=== PATIENT | female | born 1995 ===

== ENCOUNTER → 2018-07-11 | Outpatient (CLI) | payer OTHER | END | disposition home or self-care (01) | LOC: NST 16:32 | DX: Z34.00 Encounter for supervision of normal first pregnancy, unspecified trimester (principal) ==

== ENCOUNTER 2018-09-01 20:39 | Outpatient (CLI) | payer OTHER ==
[2018-09-01] MEDS ORDERED: OBSTETRIX EC C1 EACH PO (21:40)
== END 2018-09-02 19:41 | disposition home or self-care (01) ==
LOC: OBS/DEL 20:39
DX: O47.1 False labor at or after 37 completed weeks of gestation (principal); Z34.03 Encounter for supervision of normal first pregnancy, third trimester

== ENCOUNTER 2018-09-08 05:53 | Inpatient (IN) | payer OTHER ==
[~2018-09-08] VITALS: Ht 157.5 cm; Wt 98.0 kg
[~2018-09-08 05:53] MED LIST: OBSTETRIX EC C1 EACH PO
== END 2018-09-10 14:54 | disposition home or self-care (01) | DRG 807 ==
LOC: OB/GYN 05:53 → LDR 05:53 → OB/GYN 21:00
PROC: 10E0XZZ Delivery of Products of Conception, External Approach (ICD-10-PCS; principal; 2018-09-08)
PROC: 0HQ9XZZ Repair Perineum Skin, External Approach (ICD-10-PCS; 2018-09-08)
PROC: 3E0P7VZ Introduction of Hormone into Female Reproductive, Via Natural or Artificial Opening (ICD-10-PCS; 2018-09-08)
PROC: 3E033VJ Introduction of Other Hormone into Peripheral Vein, Percutaneous Approach (ICD-10-PCS; 2018-09-08)
PROC: 4A1HXCZ Monitoring of Products of Conception, Cardiac Rate, External Approach (ICD-10-PCS; 2018-09-08)
DX: O70.0 First degree perineal laceration during delivery (principal); Z37.0 Single live birth; Z3A.38 38 weeks gestation of pregnancy

== ENCOUNTER 2023-04-17 01:16 | Emergency (ER) | payer OTHER ==
[~2023-04-17] VITALS: Ht 157.5 cm; Wt 115.7 kg
== END 2023-04-17 10:35 | disposition home or self-care (01) ==
LOC: ER 01:16
DX: N93.9 Abnormal uterine and vaginal bleeding, unspecified (principal); Z91.040 Latex allergy status